=== PATIENT | male | born 1985 | race African-American/Black ===

== ENCOUNTER 2018-06-04 12:42 | Emergency (ER) | payer BC ==
[~2018-06-04] VITALS: Ht 175.3 cm; Wt 91.0 kg
[~2018-06-04 12:42] MED LIST: FLEXERIL OR; LORTAB 1010 MG PO; ULTRAM50 M1 PO
[2018-06-04] MEDS ORDERED: GABAPENTIN100 MG PO (13:07)
[2018-06-04] MEDS ORDERED: CLOPIDOGREL75 MG PO (13:08)
[2018-06-04] MEDS ORDERED: IBUPROFEN600 MG PO (13:09)
[2018-06-04] MEDS ORDERED: DILAUDID4 MG PO (13:10)
[2018-06-04 13:22] LABS: IMMATURE GRANULOCYTES 0.9 % (0.0-5.0); MEAN CELL VOLUME 86.3 fL CALC (80.0-100.0); MEAN CORPUSCULAR HGB 28.9 pG CALC (26.0-32.0); MEAN CORPUSCULAR HGB CONC 33.5 g/L CALC (32.0-36.0); NEUT# 12.43 thou/uL (1.82-7.42); RED BLOOD COUNT 3.22 mill/uL (4.70-6.10); RED CELL DISTRI WIDTH 12.7 % (11.5-15.5)
[2018-06-04 13:32] LABS: HEMATOCRIT 27.8 % (39.0-50.0); HEMOGLOBIN 9.3 g/dl (14.0-18.0); INTERNATIONAL NORMALIZED RATIO 1.1 RATIO (0.7-1.3); PROTHROMBIN TIME 12.7 SECONDS (9.0-12.5)
[2018-06-04 13:37] LABS: ALKALINE PHOSPHATASE 73 u/l (38-126); BILIRUBIN, TOTAL 0.7 mg/dL (0.0-1.4); BUN 16 mg/dL (9-20); BUN/CREATININE RATIO 16 (12-20 (CALC)); CARBON DIOXIDE 23 mmol/l (22-30); CHLORIDE 102 mmol/l (95-108); GFR > 60 ML/MIN (>=60 (CALC)); GFR FOR AFR.AMER. > 60 ML/MIN (>=60 (CALC)); POTASSIUM 4.1 mmol/l (3.5-5.1); SGOT/AST 21 u/l (17-59); SGPT/ALT 36 u/l (21-72); TOTAL PROTEIN 7.6 g/dL (6.3-8.2)
[2018-06-04 13:53] LABS: ALBUMIN 3.7 g/dL (3.2-5.0); ANION GAP 15 (6-22 (CALC)); SODIUM 136 mmol/l (137-146)
[2018-06-04 15:04] VITALS: BP 141/70
== END 2018-06-04 15:20 | disposition short-term general hospital (02) | DRG 921 ==
LOC: ED 12:42
PROVIDERS: Emergency Medicine
DX: T81.31XA Disruption of external operation (surgical) wound, not elsewhere classified, initial encounter (principal); Y83.8 Other surgical procedures as the cause of abnormal reaction of the patient, or of later complication, without mention of misadventure at the time of the procedure

== ENCOUNTER 2020-05-19 18:08 | Emergency (ER) | payer BC ==
[~2020-05-19] VITALS: Ht 175.3 cm; Wt 90.0 kg
[~2020-05-19 18:08] MED LIST changes: +CLOPIDOGREL75 MG PO; +DILAUDID4 MG PO; +GABAPENTIN100 MG PO; +IBUPROFEN600 MG PO
[2020-05-19] MEDS ORDERED: LEVAQUIN750 MG PO ×2 (20:04)
[2020-05-19 20:26] VITALS: BP 129/76
[2020-05-20] MEDS ORDERED: LEVAQUIN750 MG PO (11:15)
== END 2020-05-19 20:28 | disposition home or self-care (01) | DRG 195 ==
LOC: ED 18:08
DX: J18.9 Pneumonia, unspecified organism (principal); Z20.828 Contact with and (suspected) exposure to other viral communicable diseases